=== PATIENT | female | born 1950 | race Caucasian/White ===

== ENCOUNTER → 2024-10-10 | Outpatient (CLI) | payer MEDICARE, SELFPAY ==
--- NOTE | 2024-10-10 12:20 | XR_ITS ---
Examination: Bone densitometry Date and time of exam:October 10, 2024 1230 hours INDICATIONS: Hysterectomy age 38, personal history osteoporosis Technique: Lumbar spine and hip total bone mineralization values of an calculated. Peak reference and age match control results have been displayed. Findings: Lumbar spine total bone mineralization is0.841 gm/cm2. This is 1.9 standard deviations below peak reference. This is 0.5 standard deviations above age-matched controls. Hip total bone mineralization is 0.608 gm/cm2 This is 2.7 standard deviations below peak reference. This is 0.9 standard deviations below age-matched controls Impression: There is osteopenia based on lumbar spine measurements. There is osteoporosis based on hip measurements Lumbar mineralization is increased 1.7% compared with November 18, 2021 Hip mineralization is decreased 1.4% compared with November 18, 2021
--- NOTE | 2024-10-10 13:00 | XR_ITS ---
Examination: Screening digital mammography, bilateral Computer aided detection 3-D breast Tomosynthesis, bilateral Date and time of exam: October 10, 2024 at 1259 hours Compared to mammograms dating to October 05, 2017 Indication: Screening Technique: Nonmagnified MLO, CC views of the breasts to been obtained, reconstructed from 3-D Tomosynthesis images. R2 computer aided detection program utilized for evaluation of suspicious masses and/or abnormal calcifications. 3-D Tomosynthesis images obtained. Findings: Scattered areas of fibroglandular density No suspicious masses. Grouped microcalcifications 12:00 position left breast posterior depth Impression: BI-RADS Category 0: Incomplete: Need additional imaging evaluation Recommend follow-up spot magnification views of grouped microcalcifications 12:00 position left breast posterior depth
== END | disposition home or self-care (01) ==
PROVIDERS: PCP Family Medicine; Referring Provider Family Medicine; Visit Provider Family Medicine
DX: Z12.31 Encounter for screening mammogram for malignant neoplasm of breast (principal); R92.0 Mammographic microcalcification found on diagnostic imaging of breast; M85.88 Other specified disorders of bone density and structure, other site; M81.0 Age-related osteoporosis without current pathological fracture
CPT/HCPCS: 77063; 77067; 77080

== ENCOUNTER 2024-10-31 06:14 | Day surgery (SDC) | payer MEDICARE, SELFPAY ==
--- NOTE | 2024-10-30 07:00 | EKG_ITS ---
[facility] Test Date: 2024-10-30 Pat Name: ZAK GILL Department: Room: - Gender: Female Study Specialist: RTSJC : 1950 Requested By: Susana Hernandez Order Number: [id number] Reading MD: Susana Hernandez Measurements Intervals [place] Rate: 67 P: -51 CA: 167 QRS: 248 QRSD: 81 T: 250 QT: 414 QTc: 439 Interpretive Statements ECTOPIC ATRIAL RHYTHM MARKED RIGHT AXIS DEVIATION [QRS AXIS > 100] SEPTAL MYOCARDIAL INFARCTION , PROBABLY OLD [40+ ms Q WAVE IN V1/V2] INFERIOR MYOCARDIAL INFARCTION , OF INDETERMINATE AGE [40+ ms Q WAVE AND/OR ST/T ABNORMALITY IN II/aVF] Compared to ECG 07/27/2023 16:23:18 Ectopic atrial rhythm now present Right-axis deviation now present Myocardial infarct finding now present Sinus rhythm no longer present /store/S0/[id number]
[2024-10-30 09:27] VITALS: BMI 25.9
[2024-10-30 10:18] LABS: Basophils % (Auto) 0 % (0-2.5); Eosinophils % (Auto) 0 % (0-10); Hematocrit 38.8 % (36.0-46.0); Hemoglobin 12.5 g/dL (12.0-16.0); Immature Granulocytes % (Auto) 0 % (0-0); Immature Granulocytes Auto 0.03 Thou/mm3 (0.00-0.00); Lymphocytes # (Auto) 1.6 Thou/mm3 (1.0-4.8); Lymphocytes % (Auto) 16 % (10-50); Mean Corpuscular HGB Conc 32.2 g/dl (31.0-37.0); Mean Corpuscular Hemoglobin 28.7 pg (25.0-35.0); Mean Corpuscular Volume 89 fL (80-100); Monocytes # (Auto) 0.7 Thou/mm3 (0.0-0.8); Monocytes % (Auto) 7 % (0-12); Neutrophils # (Auto) 7.4 Thou/mm3 (1.8-7.7); Neutrophils % (Auto) 76 % (37-80); Nucleated Red Blood Cell % 0 /100 WBC (0); Platelet Count 252 Thou/mm3 (140-440); RDW Standard Deviation 48.8 fL (36.4-46.3); Red Blood Count 4.35 Miln/mm3 (4.00-5.20); White Blood Count 9.7 Thou/mm3 (3.6-11.0)
[2024-10-30 10:32] LABS: Alanine Aminotransferase 10 U/L (10-49); Albumin, Serum 4.2 gm/dL (3.4-4.8); Albumin/Globulin Ratio 1.6 (1.2-2.2); Alkaline Phosphatase 89 U/L (46-116); Anion Gap 6 (7-16); Aspartate Amino Transferase 12 U/L (0-34); BUN/Creatinine Ratio 24 Ratio (12-20); Bilirubin,Total 0.3 mg/dL (0.3-1.2); Blood Urea Nitrogen 12 mg/dL (9-23); Calcium 9.4 mg/dL (8.3-10.6); Calcium (Corrected) 9.4 mg/dL (8.5-10.1); Carbon Dioxide 29.7 mMol/L (20.0-31.0); Chloride 105 mMol/L (98-107); Creatinine (Component) 0.5 mg/dL (0.6-1.3); Estimated Creatinine Clearance 82.2 mL/min (>60); Globulin 2.6 gm/dL (2.3-3.5); Glucose 106 mg/dL (74-106); Osmolality,Calculated 280 (275-295); Sodium 141 mMol/L (136-145); Total Protein 6.8 gm/dL (5.7-8.2); eGFR > 60 See Note
[2024-10-31] VITALS (9 sets, daily range): BP systolic 136–190; BP diastolic 55–102; PULSE 70–83; RESP 12–17; TEMP 36.4–36.6; O2SAT 94–100; BMI 25.7
[2024-10-31] MEDS: RINGERS LACTATED 1000 ML 1,000 ML 20 ML IV (06:50)
[2024-10-31] MEDS: ALBUTEROL/IPRATROPIUM (Duoneb) RT SOL 3 ML NEBU INH (07:56)
--- NOTE | 2024-10-31 09:41 | ESOP_ITS ---
Date of Procedure 10/31/24 Pre Op Diagnosis Incisional hernia Post Op Diagnosis Incarcerated incisional hernia Procedure Laparoscopic assisted repair of incarcerated incisional hernia with mesh Findings An approximately 5 cm infraumbilical incisional hernia with incarcerated omentum Procedure Description Patient brought into the operating room in supine position. After administration of general orotracheal anesthesia, patient's abdomen prepped and draped in standard surgical manner. A 5 mm incision was made in left upper quadrant and Veress needle was inserted, pneumoperitoneum was obtained to 15 mmHg. The Veress needle was removed and a 5 mm trocar was placed. Laparoscopic camera was inserted, under direct visualization a laparoscopic camera a 5 mm trocar placed in left lower quadrant and additional 5 mm trocar placed in right lower quadrant. The abdomen was inspected and patient was noted to have an incarcerated infra-umbilical incisional hernia with omentum being incarcerated within the hernia sac. The hernia sac was excised with Harmonic scalpel laparoscopically and the omentum was reduced. At this point approximately 4 cm incision was made over her previous scar and dissection was carried to subcutaneous tissue. The hernia sac was circumferentially dissected off surrounding tissue and excised from surrounding abdominal fascia. The fascia was cleared from overlying tissue. The defect was approximately 5 cm in diameter. A 4 x 6 elliptical shape proceed mesh was used to cover the defect. 2 tacking sutures using 0 Ethibond placed the 2 ends of the mesh and the mesh was placed inside the abdominal cavity through the hernia defect. The defect was closed with interrupted sutures using 0 Ethibond. Subcutaneous tissue closed with interrupted sutures of 2-0 Vicryl. The abdomen was once again insufflated. 2 tacking sutures of the 2 ends of the mesh were retrieved through the previously marked abdominal wall site. Sutures were tightened and the mesh was further secured into anterior abdominal wall with secure strap tacking device. The mesh was covering the defect with at least 4 cm circumferential margin. Hemostasis was adequate and satisfactory. Instruments and trocars removed, pneumoperitoneum was evacuated and the incisions closed 4-0 Monocryl subcuticular fashion. Instruments, needles and sponge counts were reported to be correct ?2 patient tolerated the procedure well. Patient was extubated, breathing spontaneously and without difficulty and was transferred to postanesthesia care in stable condition. Anesthesia GETA and local Pathology / specimen Other (Hernia sac) Estimated Blood Loss 5 Condition Stable Disposition PACU Surgeon Susana Hernandez MD Surgical Staff Operation Date: 10/31/24 08:30 Case Staff DIRECTOR SECURITY MANAGEMENT: Sreedhar Raphael RNplant production manager: Yolie Wayne
--- NOTE | 2024-10-31 09:42 | SUR.PHASEI ---
pt received from OR in recovery bay 7. pt obtunded, breathing unlabored on oxymask 6l, oral airway in place. v/s stable. pt dressing to abd dermabond x5 cdi. report received from Lindsey López and Sreedhar FISCHER.
[2024-10-31] MEDS: fentaNYL CIT INJ 50 mCg/ML AMP 2ML IV (09:56)
[2024-10-31] MEDS: HYDROmorphone INJ 2 MG/ML VIAL 0.5 MG IV (10:07)
[2024-10-31] MEDS: LABETALOL INJ 5 MG/ML VIAL 20 ML 10 MG IVP (10:08)
--- NOTE | 2024-10-31 10:10 | SUR.PHASEI ---
pt able to tolerate oral fluids without difficulty swallowing or nausea/vomiting.
[2024-10-31] MEDS: ONDANSETRON INJ 2 MG/ML INJ 2 ML 4 MG IV (10:18)
--- NOTE | 2024-10-31 11:05 | SUR.PHASEII ---
pt awake and alert, breathing unlabored on room air. v/s stable. pt dressing to abd x5 cdi. pt able to ambulate to wheelchair with steady gait. d/c instructions given with daughter Espinoza in room, all questions answered. pt d/c via wheelchair with all belongings.
== END 2024-10-31 11:05 | disposition home or self-care (01) ==
PROVIDERS: Anesthesiology; PCP Family Medicine; Referring Provider Surgery; Visit Provider Surgery
PROC: 0WQF4ZZ Repair Abdominal Wall, Percutaneous Endoscopic Approach (ICD-10-PCS; CPT 49594; principal; 2024-10-31 08:30)
DX: K43.0 Incisional hernia with obstruction, without gangrene (principal); Z01.810 Encounter for preprocedural cardiovascular examination
CPT/HCPCS: 49594; 36415; 80053; 85025; 93005; A4217; A4649; A9270; C1781; J0131; J0690; J1100; J2405; J2704; J3010; J3490; J7120; J1596; J1920

== ENCOUNTER 2025-09-01 10:06 | Emergency (ER) | payer MEDICARE, SELFPAY ==
[2025-09-01 10:12] VITALS: PULSE 73; RESP 18; O2SAT 96
--- NOTE | 2025-09-01 10:20 | PD.EDCHEST ---
ED Chest Pain RME/HPI General Chief Complaint: Chest Pain Stated Complaint: CHEST PAIN Time Seen by Provider: 09/01/25 10:08 Arrival date/time: 09/01/25 10:06 Limitations: no limitations RME / HPI RME / HPI narrative: DR. TOM SMITH ED EVALUATION: 75-year-old female presents to the Emergency Department with complaint of left sided chest pain radiating from the mid anterior chest to the mid back. She rated the pain as 7 out of 10. She denies nausea. She states that when the pain was severe it was hard to breathe. Radiation was only to the mid back and not to the arms, neck, or jaw. Her daughter reports the patient appeared pale and clammy during the episode at home. EMS administered aspirin, four 81 mg tablets. Chest pain spontaneously resolved prior to arrival and lasted approximately 2 to 3 minutes. She denies abdominal pain. No leg swelling or recent long trips. Past medical history includes fractured vertebrae, diverticulitis status post partial colectomy, osteoporosis, arthritis, COPD, and senior living tobacco use. She continues to smoke and uses an inhaler and nebulizer. Family history significant for cardiac disease, mother at age 42 during heart surgery and sister has a pacemaker. Related Data Home Medications ?Medication ?Instructions ?Recorded ?Confirmed ibandronate 150 mg tablet (Boniva) 150 mg PO QMONTH 01/22/18 10/30/24 cholecalciferol (vitamin D3) 50 2,000 unit PO QDAY 10/11/19 10/30/24 mcg (2,000 unit) tablet (Vitamin D3) calcitonin (salmon) 200 1 spray intranasal (ALT) QDAY 03/23/23 10/30/24 unit/actuation nasal spray fluticasone fur. 100 mcg-umeclid 1 ea inhalation DAILY 04/11/24 10/30/24 62.5 mcg-vilant 25 mcg inhalat.powder (Trelegy Ellipta) Previous Rx's ?Medication ?Instructions ?Recorded docusate sodium 100 mg capsule 100 mg PO BID #40 caps 10/31/24 (Colace) hydrocodone 5 mg-acetaminophen 325 1 tab PO Q6H PRN pain (scale score 10/31/24 mg tablet 7-10) #20 tabs ibuprofen 600 mg tablet 600 mg PO Q8H PRN pain (scale 10/31/24 score 4-6) #15 tabs Allergies Allergy/AdvReac Type Severity Reaction Status Date / Time lactose Allergy Severe Diarrhea Verified 10/31/24 06:51 Review of Systems Review of Systems Systems Reviewed: All systems reviewed, normal except as documented Past Medical History Past Medical History RESPIRATORY: Positive Chronic Obstructive Pulmonary Disease (COPD) and Pneumonia GASTROINTESTINAL: Positive Gastrointestinal Disorders, Diverticulitis, Diverticulosis and Hemorrhoids REPRODUCTIVE: Positive Previous Pregnancies MUSCULOSKELETAL: Positive Musculoskeletal Disorders (CARPAL TUNNEL), Arthritis, Osteoporosis and Fractures (right ankle) ENT: Positive Cataracts, Blind (bilateral), Macular Degeneration and Deafness ([place]) PSYCHO/SOCIAL: Positive Depression and Anxiety OTHER HISTORY: Positive Hospitalization, Chicken Pox, Measles and Mumps Family History FAMILY HISTORY: Positive Family Cancer Surgical History SURGICAL: Positive Eye Surgery, Tonsillectomy, Abdominal Surgery, Bowel Surgery (colon resection), Open Reduction Internal Fixation (right ankle has metal) and Hysterectomy Social History SMOKING STATUS: Current some day smoker SUBSTANCE USE: marijuana ED Exam General Limitations: Present no limitations General appearance: Present alert and in no apparent distress Head Head exam: Present atraumatic, normocephalic and normal inspection Eye Eye exam: Present normal appearance, PERRL and EOMI ENT ENT exam: Present normal exam, normal oropharynx and mucous membranes moist Neck Neck exam: Present normal inspection, full ROM and trachea midline Chest Chest inspection: Present normal inspection and symmetric chest wall rise Respiratory Respiratory exam: Present normal lung sounds bilaterally Cardiovascular Cardiovascular exam: Present regular rate, normal rhythm and normal heart sounds Abdominal Exam Abdominal exam: Present soft and normal bowel sounds Extremities Exam Extremities exam: Present normal inspection and full ROM Back Exam Back exam: Present normal inspection and full ROM Neurological Exam Neurological exam: Present alert, oriented X3 and CN II-XII intact Psychiatric Psychiatric exam: Present normal affect and normal mood Skin Skin exam: Present warm, dry, intact and normal color Course Quality Measures none Orders Category Date Time Status Post Form Remover STAT Care 09/01/25 10:35 Completed Continuous Pulse Oximetry NOW Care 09/01/25 10:35 Completed EKG (ED ONLY) *Do not use* NOW Care 09/01/25 10:28 Completed Insert IV STAT Care 09/01/25 10:35 Completed EKG (ED Only) Stat Exams 09/01/25 10:28 Draft XR chest 1V portable Stat Exams 09/01/25 10:35 Completed B-Type Natriuretic Peptide Stat Lab 09/01/25 10:43 Completed CBC Stat Lab 09/01/25 10:43 Completed Comprehensive Metabolic Panel Stat Lab 09/01/25 10:43 Completed Lipase Stat Lab 09/01/25 10:43 Completed Magnesium Stat Lab 09/01/25 10:43 Completed Partial Thromboplastin Time Stat Lab 09/01/25 10:43 Completed Prothrombin Time with INR Stat Lab 09/01/25 10:43 Completed Troponin I Stat Lab 09/01/25 10:43 Completed Troponin I Stat Lab 09/01/25 11:35 Completed Oxygen Delivery NOW RT 09/01/25 10:35 Completed Vital Signs Vital signs: Vital Signs Temperature 98.1 F 09/01/25 10:30 Pulse Rate 85 09/01/25 10:30 Respiratory Rate 18 09/01/25 10:30 Blood Pressure 182/77 H 09/01/25 10:30 Pulse Oximetry (%) 96 09/01/25 10:30 Oxygen Delivery Method Room Air 09/01/25 10:30 Chest Pain MDM Narrative MDM Narrative:: I, Alka Robledo am scribing for and in the presence of Dr. Villeda. 75-year-old female with brief episode of chest pain radiating to the mid back associated with dyspnea, pallor, and diaphoresis, now resolved. Significant cardiac risk factors and family history. EMS administered aspirin. Workup initiated for cardiac and other emergent causes. Differential diagnoses include ACS, aortic pathology, and musculoskeletal pain. 1214: Troponins are flat, will discharge. Patient data External records reviewed:: [facility] previous records and EMS form Clinical information provided by:: patient and EMS Social determinants that could affect healthcare access:: substance use (marijuana and continues to smoke cigarettes ) Patient has the following chronic illnesses:: Past medical history includes fractured vertebrae, diverticulitis status post partial colectomy, osteoporosis, arthritis, COPD, and senior living tobacco use. She continues to smoke and uses an inhaler and nebulizer. Family history significant for cardiac disease, mother at age 42 during heart surgery and sister has a pacemaker. How is presenting disease/condition affected by chronic disease/condition?: exacerbated by Evaluation data The following diagnostics were reviewed and interpreted by me:: lab results, radiology exam(s) and EKG tracing(s) (My interpretation: EKG performed at 1029 hours, normal sinus rhythm, rate 90, left axis deviation, sinus arrhythmia, LVH, no signs of acute ischemia) Lab and/or radiology exams considered but not ordered:: none Interpretation Summary: Procedure(s): XR chest 1V portable Accession Number(s): [id number] cc: Sreedhar Malave MD; Ajay Villeda MD; Miguel Gray MD~ EXAMINATION: AP chest single view TECHNIQUE: AP portable upright chest single view Date and time: September 01, 2025, 10:36 a.m., comparison August 09, 2023 INDICATIONS: Onset severe chest pain today. FINDINGS: Moderate hyperexpansion Normal heart size No lobar pneumonia or pulmonary edema Minimal basilar bronchitis pattern IMPRESSION: Minimal basilar bronchitis pattern Dictated By: Sreedhar Malave MD Medications / Prescriptions Medications or Prescriptions considered but not ordered:: none Medication administrations:: see above if any Consultations Consultation(s) initiated? (list below): No Diagnosis Chest Pain Differential Diagnosis: atypical chest pain, costochondritis, chest pain and other (ACS, aortic pathology, and musculoskeletal pain) Most likely diagnosis given after review of the tests above:: Chest pain Admission Indicated Admission indicated?: not indicated Admission Request Was there a request for admission?: No Disposition Plan Disposition Plan: Discharge Discharge Attestation Discharge Attestation: The patient and all family members were given an opportunity to ask questions and understood the discharge instructions. Discharge instructions specifically effects, indications for sooner follow up or return to the emergency department, and the expected course of current diagnosis. Patient condition: Stable Discharge Plan Plan Patient Disposition: HOME (Self Care) Discharge Disposition comment: Stable for discharge home. Patient condition on transfer: Stable Prescriptions/Referrals Prescriptions/Med Rec: No Action cholecalciferol (vitamin D3) [Vitamin D3] 2,000 unit Tablet 2,000 unit PO QDAY ibandronate [Boniva] 150 mg Tablet 150 mg PO QMONTH calcitonin (salmon) 200 unit/actuation [place],Non-Aerosol 1 spray INTRANASAL (ALT) QDAY Trelegy Ellipta 100-62.5-25 mcg blister with device 1 ea INHALATION DAILY Patient Comments: INHALE 1 PUFF INTO THE LUNGS EVERY DAY FOR 90 DAYS docusate sodium [Colace] 100 mg capsule 100 mg PO BID Qty: 40 0RF hydrocodone-acetaminophen 5-325 mg tablet 1 tab PO Q6H MDD 4 PRN (Reason: pain (scale score 7-10)) Qty: 20 0RF ibuprofen 600 mg tablet 600 mg PO Q8H PRN (Reason: pain (scale score 4-6)) Qty: 15 0RF Referrals: Audra Reyez MD [Physician, Cardiology] - In 1 week Miguel Gray MD [Primary Care Provider, Family Practice] - In 1 week Problem List Clinical Impression: Chest pain Patient/Caregiver Discharge Instructions Discharge Activity: activity as tolerated Education Materials: ED Chest Pain, Uncertain Cause Additional Instructions: Please return to the emergency department if you have any worsening or any further medical problems and we will help you. Otherwise you should follow-up with your primary care doctor within the next several days I have given you contact information for the nutritionist public health that we have on-call for ER today. His name is Dr. Reyez. Just give his office a call and please make a follow-up appointment for sometime in the next several days Print Language: Ukrainian Stand Alone Forms: Bibiana Award Info., Patient Portal Info Letter
--- NOTE | 2025-09-01 10:28 | EKG_ITS ---
[facility], [place] Test Date: 2025-09-01 Pat Name: ZAK GILL Department: Room: - Gender: Female Engine Lathe Operator: : 1950 Requested By: Ajay Hdez Order Number: [id number] Reading MD: Ajay Hdez Measurements Intervals [place] Rate: 90 P: 65 NE: 160 QRS: -2 QRSD: 83 T: 16 QT: 400 QTc: 492 Interpretive Statements SINUS RHYTHM WITH SINUS ARRHYTHMIA VOLTAGE CRITERIA FOR LVH [MEETS CRITERIA IN ONE OF: R(aVL), S(V1), R(V5), R(V5/V6)+S(V1)] Compared to ECG 10/30/2024 10:19:20 Left ventricular hypertrophy now present Ectopic atrial rhythm no longer present Right-axis deviation no longer present Myocardial infarct finding no longer present /store/S0/[id number].pdf
[2025-09-01 10:30] VITALS: BP 182/77; PULSE 85; RESP 18; TEMP 36.7; O2SAT 96
[2025-09-01 10:31] VITALS: BMI 25.0
--- NOTE | 2025-09-01 10:35 | XR_ITS ---
EXAMINATION: AP chest single view TECHNIQUE: AP portable upright chest single view Date and time: September 01, 2025, 10:36 a.m., comparison August 09, 2023 INDICATIONS: Onset severe chest pain today. FINDINGS: Moderate hyperexpansion Normal heart size No lobar pneumonia or pulmonary edema Minimal basilar bronchitis pattern IMPRESSION: Minimal basilar bronchitis pattern
[2025-09-01 10:43] VITALS: PULSE 85; RESP 16; RESP 96
[2025-09-01 10:49] LABS: Basophils # (Auto) 0.0 Thou/mm3 (0.0-0.2); Basophils % (Auto) 0 % (0-2.5); Eosinophils # (Auto) 0.0 Thou/mm3 (0.0-0.5); Eosinophils % (Auto) 0 % (0-10); Hematocrit 43.7 % (36.0-46.0); Hemoglobin 14.0 g/dL (12.0-16.0); Immature Granulocytes Auto 0.01 Thou/mm3 (0.00-0.00); Lymphocytes # (Auto) 1.7 Thou/mm3 (1.0-4.8); Lymphocytes % (Auto) 17 % (10-50); Mean Corpuscular HGB Conc 32.0 g/dl (31.0-37.0); Mean Corpuscular Hemoglobin 28.4 pg (25.0-35.0); Mean Corpuscular Volume 89 fL (80-100); Monocytes # (Auto) 0.6 Thou/mm3 (0.0-0.8); Monocytes % (Auto) 6 % (0-12); Neutrophils # (Auto) 7.7 Thou/mm3 (1.8-7.7); Neutrophils % (Auto) 77 % (37-80); Nucleated Red Blood Cell # 0.00 Thou/mm3 (0.00-0.00); Nucleated Red Blood Cell % 0 /100 WBC (0); Platelet Count 217 Thou/mm3 (140-440); RDW Standard Deviation 46.1 fL (36.4-46.3); Red Blood Count 4.93 Miln/mm3 (4.00-5.20); White Blood Count 10.0 Thou/mm3 (3.6-11.0)
[2025-09-01 11:04] LABS: INR 1.0 (0.9-1.3); Partial Thromboplastin Time 26.3 Seconds (22.0-36.0); Prothrombin Time 10.3 Seconds (9.0-12.2)
[2025-09-01 11:06] LABS: B-Type Natriuretic Peptide 26 pg/mL (0-100)
[2025-09-01 11:13] LABS: Albumin, Serum 4.4 gm/dL (3.4-4.8); Albumin/Globulin Ratio 1.6 (1.2-2.2); Alkaline Phosphatase 87 U/L (46-116); Anion Gap 10 (7-16); Aspartate Amino Transferase 18 U/L (0-34); BUN/Creatinine Ratio 10 Ratio (12-20); Bilirubin,Total 0.4 mg/dL (0.3-1.2); Blood Urea Nitrogen 6 mg/dL (9-23); Calcium 9.3 mg/dL (8.3-10.6); Calcium (Corrected) 9.3 mg/dL (8.5-10.1); Carbon Dioxide 27.6 mMol/L (20.0-31.0); Chloride 106 mMol/L (98-107); Creatinine (Component) 0.6 mg/dL (0.6-1.3); Estimated Creatinine Clearance 66.4 mL/min (>60); Globulin 2.8 gm/dL (2.3-3.5); Glucose 98 mg/dL (74-106); Lipase 24 U/L (12-53); Magnesium 1.7 mg/dL (1.6-2.6); Osmolality,Calculated 284 (275-295); Potassium 3.3 mMol/L (3.4-5.1); Sodium 144 mMol/L (136-145); Total Protein 7.2 gm/dL (5.7-8.2); Troponin I < 0.020 ng/mL (0.0-0.045); eGFR > 60 See Note
[2025-09-01 11:18] LABS: Alanine Aminotransferase 9 U/L (10-49)
[2025-09-01 11:44] VITALS: BP 157/54; PULSE 76; RESP 16; TEMP 36.7; O2SAT 97
[2025-09-01 11:57] LABS: Troponin I < 0.020 ng/mL (0.0-0.045)
== END 2025-09-01 12:38 | disposition home or self-care (01) ==
PROVIDERS: Emergency Provider Emergency Medicine; PCP Family Medicine
DX: R07.89 Other chest pain (principal); I49.8 Other specified cardiac arrhythmias; Z82.49 Family history of ischemic heart disease and other diseases of the circulatory system
CPT/HCPCS: 36415; 71045; 80053; 83690; 83735; 83880; 84484; 85025; 85610; 85730; 93005; 99284